=== PATIENT | female | born 1985 | race Caucasian/White ===

== ENCOUNTER 2018-09-20 18:46 | Emergency (ER) | payer BC, OTHER ==
[2018-09-20 19:16] VITALS: BP 132/88
--- NOTE | 2018-09-20 20:48 | EDM.PDOC ---
ED HPI GENERAL MEDICAL PROBLEM - General Chief Complaint: Upper Extremity Injury/Pain Stated Complaint: SLAMMED FINGERS IN [facility] DOOR Time Seen by Provider: 09/20/18 20:44 Source of Information: Reports: Patient History Limitations: Reports: No Limitations - History of Present Illness INITIAL COMMENTS - FREE TEXT/NARRATIVE: C/o pain to right fingers after heavy door at work slammed on fingers at work today Right Hand Pain Score (Numeric/FACES): 3 - Related Data Allergies Allergy/AdvReac Type Severity Reaction Status Date / Time No Known Allergies Allergy Verified 09/20/18 19:19 Home Meds: Home Meds Propranolol [Inderal] 10 mg PO BID 09/20/18 [History] hydrOXYzine pamoate [Hydroxyzine Pamoate] 25 mg PO BID 09/20/18 [History] Past Medical History - Past Health History Medical/Surgical History: Denies Medical/Surgical History HEENT History: Reports: Impaired Vision Genitourinary History: Reports: Other (See Below) Other Genitourinary History: LEAP procedure 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 ED EXAM, GENERAL - Physical Exam Exam: See Below Exam Limited By: No Limitations General Appearance: Alert, Mild Distress Ears: Normal External Exam, Hearing Grossly Normal Throat/Mouth: Normal Voice, No Airway Compromise Head: Normocephalic Neck: Full Range of Motion Respiratory/Chest: No Respiratory Distress Cardiovascular: Normal Peripheral Pulses Extremities: Other (mild swelling and bruising to right medial 3rd finger between MIP and DIP. no deformity, tender with flexion t) Neurological: Alert, Oriented, Normal Cognition Psychiatric: Normal Affect Skin Exam: Warm, Dry, Intact, Ecchymosis Course - Vital Signs Last Recorded V/S: Last Vital Signs Temp 97.7 F 09/20/18 19:13 Pulse 88 09/20/18 19:13 Resp 18 05/13/19 19:13 BP 132/88 09/20/18 19:13 Pulse Ox 99 09/20/18 19:13 - Radiology Interpretation Free Text/Narrative:: Name: EFFIE KING Age: 32Years F Date: 09/20/2018 SSN: -- : 1985 Study: XR HAND COMPLETE MIN OF 3 VIEWS RIGHT Requesting Physician: KENA FAULKNER Images: 3 Addl Studies: Provided Clinical History: Contrast: Contrast Medium: Contrast Amount: Contrast Method: CONFIDENTIALITY STATEMENT This report is intended only for use by the referring physician, and only in accordance with law. If you received this in error, call [phone]. Page 1 of 1 EXAM: XR Right Hand Complete, 3 or more Views EXAM DATE/TIME: 09/20/2018 7:27 PM CLINICAL HISTORY: 32 years old, female; Injury or trauma; Injury history: Slammed hand in [facility] door; Work related; Initial encounter; Blunt trauma (contusions or hematomas; Right TECHNIQUE: Imaging protocol: XR Right hand. Views: 3 or more views COMPARISON: No relevant prior studies available. FINDINGS: Bones/joints: Normal. Soft tissues: Normal. IMPRESSION: No acute findings. Thank you for allowing us to participate in the care of your patient. Dictated and Authenticated by: Meño Lynch DO 09/20/2018 8:02 PM Central Time ([place] & [place]) Departure - Departure Time of Disposition: 20:45 Disposition: Home, Self-Care 01 Condition: Good Clinical Impression: Contusion of right middle finger without damage to nail Qualifiers: Encounter type: initial encounter Qualified Code(s): S60.031A - Contusion of right middle finger without damage to nail, initial encounter - Discharge Information *PRESCRIPTION DRUG MONITORING PROGRAM REVIEWED*: No *COPY OF PRESCRIPTION DRUG MONITORING REPORT IN PATIENT VAHID: No Instructions: Contusion Forms: ED Department Discharge Additional Instructions: tylenol or ibuprofen alternating every 4 hours as needed for discomfort spint to right 3 rd finger as needed for discomfort follow up next week in clinic if continued pain and swelling elevate and ice tonight
== END 2018-09-20 20:54 | disposition home or self-care (01) ==
LOC: DL.ED 18:46
DX: S60.031A Contusion of right middle finger without damage to nail, initial encounter (principal); Z98.51 Tubal ligation status; Z90.710 Acquired absence of both cervix and uterus; W22.8XXA Striking against or struck by other objects, initial encounter; Y99.0 Civilian activity done for income or pay
CPT/HCPCS: 73130-RT; 99283-25

== ENCOUNTER 2019-07-02 19:41 | Emergency (ER) | payer BC, OTHER ==
[2019-07-02 20:19] VITALS: BP 110/86; PULSE 82
[2019-07-02] MEDS ORDERED: Ondansetron 4 MG Tab.DIS PO ONE (21:01)
[2019-07-02] MEDS ORDERED: Butorphanol 2 MG/ML SDV IM ONE (21:01)
--- NOTE | 2019-07-02 21:22 | EDM.PDOC ---
ED HPI GENERAL MEDICAL PROBLEM - General Chief Complaint: Headache Stated Complaint: HEADACHE Time Seen by Provider: 07/02/19 20:20 Source of Information: Reports: Patient History Limitations: Reports: No Limitations - History of Present Illness INITIAL COMMENTS - FREE TEXT/NARRATIVE: c/o left frontal migraine headache same as usual. Sensitive to light, Nauseated this am. Improved after taking nausea medication. Headache same pattern as usual migraine. States did not get 2nd dose of immetrex early enough. Left Temporal Headache Pain Score (Numeric/FACES): 8 - Related Data Allergies Allergy/AdvReac Type Severity Reaction Status Date / Time No Known Allergies Allergy Verified 07/02/19 20:16 Home Meds: Home Meds Propranolol [Inderal] 10 mg PO BID 09/20/18 [History] Escitalopram Oxalate 1 tab PO DAILY 07/02/19 [History] SUMAtriptan Succinate [Imitrex] 6 mg SQ ASDIRECTED PRN 07/02/19 [History] Past Medical History - Past Health History Medical/Surgical History: Denies Medical/Surgical History HEENT History: Reports: Impaired Vision Cardiovascular History: Reports: None Respiratory History: Reports: None Gastrointestinal History: Reports: None Genitourinary History: Reports: Other (See Below) Other Genitourinary History: LEAP procedure 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: 2 pregnancies Musculoskeletal History: Reports: None Neurological History: Reports: Migraines Psychiatric History: Reports: Anxiety, Other (See Below) Other Psychiatric History: insomnia Endocrine/Metabolic History: Reports: None Hematologic History: Reports: None Immunologic History: Reports: None Oncologic (Cancer) History: Reports: None Dermatologic History: Reports: None - Past Surgical History Head Surgeries/Procedures: Reports: None Female Surgical History: Reports: Hysterectomy, Tubal Ligation Social & Family History - Tobacco Use Smoking Status *Q: Never Smoker - Caffeine Use Caffeine Use: Reports: Coffee, Soda - Recreational Drug Use Recreational Drug Use: No - Living Situation & Occupation Living situation: Reports: Occupation: Employed ED ROS GENERAL - Review of Systems Review Of Systems: Comprehensive ROS is negative, except as noted in HPI. - Physical Exam Exam: See Below Exam Limited By: No Limitations General Appearance: Alert, Mild Distress Eye Exam: Bilateral Eye: EOMI Ears: Normal External Exam Nose: Normal Inspection Throat/Mouth: Normal Inspection Head Exam: Atraumatic, Normocephalic Neck: Normal Inspection Respiratory/Chest: No Respiratory Distress, Lungs Clear, Normal Breath Sounds Cardiovascular: Normal Peripheral Pulses, Regular Rate, Rhythm GI/Abdominal: Normal Bowel Sounds, Soft Neuro Exam (Abbreviated): Alert, Oriented, Normal Cognition Back Exam: Full Range of Motion Psychiatric: Normal Affect, Normal Mood Skin Exam: Warm, Dry, Intact, Normal Color Course - Vital Signs Last Recorded V/S: Last Vital Signs Temp 97.5 F 07/02/19 20:17 Pulse 82 07/02/19 20:17 Resp 18 07/02/19 20:17 BP 110/86 07/02/19 20:17 Pulse Ox 98 07/02/19 20:17 - Orders/Labs/Meds Meds: Medications Discontinued Medications Generic Name Dose Route Start Last Admin Trade Name Ora PRN Reason Stop Dose Admin Butorphanol Tartrate 1 mg 07/02/19 21:01 07/02/19 21:11 Stadol IM 07/02/19 21:02 1 mg ONETIME ONE Administration Ondansetron HCl 4 mg 07/02/19 21:01 07/02/19 21:10 Zofran Odt PO 07/02/19 21:02 4 mg ONETIME ONE Administration Departure - Departure Time of Disposition: 21:18 Disposition: Home, Self-Care 01 Condition: Good Clinical Impression: Migraine Migraine Qualifiers: Migraine type: unspecified Status migrainosus presence: without status migrainosus Intractability: not intractable Qualified Code(s): G43.909 - Migraine, unspecified, not intractable, without status migrainosus - Discharge Information *PRESCRIPTION DRUG MONITORING PROGRAM REVIEWED*: No *COPY OF PRESCRIPTION DRUG MONITORING REPORT IN PATIENT VAHID: No Instructions: Recurrent Migraine Headache, [id number] Referrals: Carlie Leyva MD [Primary Care Provider] - Forms: ED Department Discharge Additional Instructions: rest lactivity as tolerated increase fluid intake continue home medications Sepsis Event Note - Evaluation Sepsis Screening Result: No Definite Risk - Focused Exam Vital Signs: Vital Signs Temp Pulse Resp BP Pulse Ox 07/02/19 20:17 97.5 F 82 18 110/86 98 Date Exam was Performed: 07/03/19 Time Exam was Performed: 02:37
== END 2019-07-02 21:30 | disposition home or self-care (01) ==
LOC: DL.ED 19:41
DX: G43.909 Migraine, unspecified, not intractable, without status migrainosus (principal); F41.9 Anxiety disorder, unspecified; Z79.899 Other long term (current) drug therapy
CPT/HCPCS: 96372; 99283; A9270; J0595

== ENCOUNTER 2021-05-24 09:10 | Emergency (ER) | payer SELFPAY ==
[2021-05-24] MEDS ORDERED: Lidocaine 1% 30 ML SDV INJECT ONE (12:14)
[2021-05-24 12:28] VITALS: BP 123/92; PULSE 71
[2021-05-24] MEDS ORDERED: Bacitracin Oint 1 GM U/D Packet TOP ONE (12:42)
== END 2021-05-24 13:26 | disposition home or self-care (01) ==
LOC: DL.ED 09:10
DX: S61.250A Open bite of right index finger without damage to nail, initial encounter (principal); Z87.891 Personal history of nicotine dependence; W54.0XXA Bitten by dog, initial encounter
CPT/HCPCS: 12001; 99283-25

== ENCOUNTER 2023-11-15 14:41 | Emergency (ER) | payer BC ==
[2023-11-15 14:50] VITALS: BP 154/85; PULSE 84
[2023-11-15] MEDS: Lidocaine 2% 20 ML MDV ONE (15:04)
== END 2023-11-15 15:28 | disposition home or self-care (01) ==
LOC: DL.ED 14:41
DX: G43.909 Migraine, unspecified, not intractable, without status migrainosus (principal); Z90.710 Acquired absence of both cervix and uterus
CPT/HCPCS: 64450; 99283-25; J3490

== ENCOUNTER 2024-03-25 19:20 | Emergency (ER) | payer BC ==
[2024-03-25 20:02] VITALS: BP 121/83; PULSE 70
[2024-03-25 20:26] LABS: BASOPHILS PERCENT AUTO 0.3 % (0.0-1.0); EOSINOPHILS PERCENT AUTO 1.2 % (1.0-3.0); HEMATOCRIT 36.3 % (37.0-47.0); HEMOGLOBIN 12.4 g/dL (12.0-16.0); LYMPHOCYTES PERCENT AUTO 37.7 % (20.5-50.1); MEAN CORPUSCULAR HEMOGLOBIN 31.7 pg (27.0-34.0); MEAN CORPUSCULAR HGB CONC 34.2 g/dL (33.0-35.0); MEAN CORPUSCULAR VOLUME 92.8 fL (80-100); MONOCYTES PERCENT AUTO 9.5 % (2-8); NEUTROPHILS PERCENT AUTO 51.3 % (42.2-75.2); PLATELET COUNT,PLT 263 10^3/uL (150-450); RED BLOOD CELL COUNT 3.91 10^6/uL (4.2-5.4)
[2024-03-25] MEDS: Ondansetron 4 MG Tab.DIS PO ONE (20:43)
[2024-03-25] MEDS: SUMAtriptan 6 MG/0.5 ML SDV SUBCUT ONE (20:43)
[2024-03-25 20:44] LABS: A/G RATIO 1.2; ALBUMIN 3.9 g/dL (3.4-5.0); ANION GAP 10.2 mEq/L (7-13); BILIRUBIN TOTAL 0.3 mg/dL (0.2-1.0); BUN/CREATININE RATIO 10.1 (No establ ref range); CALCIUM 9.4 mg/dL (8.5-10.1); CREATININE 1.09 mg/dL (0.55-1.02); EST CRCL DRUG DOSING (CG) 61.73 mL/min; MAGNESIUM 2.1 mg/dL (1.8-2.4); POTASSIUM,K 4.2 mmol/L (3.5-5.1); PROTEIN TOTAL,TP 7.1 g/dL (6.4-8.2)
[2024-03-25 21:24] LABS: APPEARANCE,URINE CLEAR (CLEAR); BILIRUBIN,URINE NEGATIVE (NEGATIVE); COLOR,URINE STRAW (YELLOW); GLUCOSE,URINE NEGATIVE (NEGATIVE); KETONES,URINE NEGATIVE (NEGATIVE); LEUKOCYTE ESTERASE,URINE NEGATIVE (NEGATIVE); NITRITE,URINE NEGATIVE (NEGATIVE); OCCULT BLOOD,URINE NEGATIVE (NEGATIVE); PROTEIN,URINE NEGATIVE (NEGATIVE); UROBILINOGEN,URINE 0.2 mg/dL (0.2-1.0)
[2024-03-25] MEDS: Ketorolac 30 MG/ML SDV IVPUSH ONE (21:28)
[2024-03-25] MEDS: Acetaminophen 325 MG Tab PO ONE (21:29)
[2024-03-25] MEDS: Sodium Chloride 0.9% 1,000 ML IV ONE (21:29)
== END 2024-03-25 22:12 | disposition home or self-care (01) ==
LOC: DL.ED 19:20
DX: G43.909 Migraine, unspecified, not intractable, without status migrainosus (principal); Z90.710 Acquired absence of both cervix and uterus; Z87.891 Personal history of nicotine dependence; Z79.899 Other long term (current) drug therapy
CPT/HCPCS: 36415; 80053; 81003; 81025; 83735; 85025; 96361; 96372; 96374; 99282; 99283-25; A9270-GY; J1885; J3030; J7030

== ENCOUNTER 2024-06-14 16:36 | Emergency (ER) | payer BC, OTHER ==
[2024-06-14 16:50] VITALS: BP 117/91; PULSE 71
[2024-06-14 17:23] LABS: APPEARANCE,URINE CLEAR (CLEAR); BILIRUBIN,URINE NEGATIVE (NEGATIVE); COLOR,URINE YELLOW (YELLOW); GLUCOSE,URINE NEGATIVE (NEGATIVE); KETONES,URINE NEGATIVE (NEGATIVE); LEUKOCYTE ESTERASE,URINE NEGATIVE (NEGATIVE); NITRITE,URINE NEGATIVE (NEGATIVE); OCCULT BLOOD,URINE NEGATIVE (NEGATIVE); PROTEIN,URINE NEGATIVE (NEGATIVE); UROBILINOGEN,URINE 0.2 mg/dL (0.2-1.0)
== END 2024-06-14 18:46 | disposition home or self-care (01) ==
LOC: DL.ED 16:36
DX: M54.42 Lumbago with sciatica, left side (principal); Z79.899 Other long term (current) drug therapy; Z90.710 Acquired absence of both cervix and uterus
CPT/HCPCS: 72131; 81003; 99284